=== PATIENT | female | born 1985 | race American Indian/Alaskan Native ===

== ENCOUNTER → 2018-05-03 14:43 | Outpatient (CLI) | payer SELFPAY ==
[2018-05-09 13:30] LABS: QuantiFERON TB NEGATIVE (Negative)
== END ==
PROVIDERS: PCP Physician Assistant; Visit Provider Physician Assistant
DX: Z11.1 Encounter for screening for respiratory tuberculosis (principal)
CPT/HCPCS: 36415; 86480

== ENCOUNTER → 2020-01-21 14:25 | Outpatient (CLI) | payer BC, SELFPAY ==
[2020-01-22 16:55] LABS: COVID19 Sendout Not Detected (Not Detected)
== END ==
PROVIDERS: Visit Provider Physician Assistant
DX: Z11.59 Encounter for screening for other viral diseases (principal)
CPT/HCPCS: 87635